=== PATIENT | male | born 1945 | race Caucasian/White ===

== ENCOUNTER 2024-05-28 10:10 | Emergency (ER) | payer OTHER, BC ==
[2024-05-28] MEDS ORDERED: cloNIDine HCL 0.1 MG TAB ONE (11:08)
--- NOTE | 2024-05-28 11:27 | ER ---
Nurse's Notes [facility] Name: Ochoa Bansal Age: 78 yrs Sex: Male : 1945 Arrival Date: 05/28/2024 Time: 10:10 Bed 12 Private MD: Diagnosis: Essential (primary) hypertension Presentation: 05/28 10:36 Chief complaint: Sent from cancer center for high blood pressure. Coronavirus screen: hb At this time, the client does not indicate any symptoms associated with coronavirus-19. Ebola Screen: No symptoms or risks identified at this time. Initial Sepsis Screen: Does the patient meet any 2 criteria? No. Patient's initial sepsis screen is negative. Does the patient have a suspected source of infection? No. Patient's initial sepsis screen is negative. Risk Assessment: Do you want to hurt yourself or someone else? Patient reports no desire to harm self or others. Onset of symptoms was May 28, 2024. 10:36 Method Of Arrival: Ambulatory hb 10:36 Acuity: JORGE 3 hb Historical: - Allergies: 10:37 No Known Allergies; hb - PMHx: 10:37 Prostate Cancer; Hypertension; hb - Immunization history:: Adult Immunizations up to date. - Infectious Disease History:: Denies. - Social history:: Smoking status: Patient denies any tobacco usage or history of. Screenin:19 [facility] ED Fall Risk Assessment (Adult) History of falling in the last 3 months, ll1 including since admission No falls in past 3 months (0 pts) Confusion or Disorientation No (0 pts) Intoxicated or Sedated No (0 pts) Impaired Gait No (0 pts) Mobility Assist Device Used Yes (1 pt) Altered Elimination No (0 pt) Score/Fall Risk Level 0 - 2 = Low Risk Maintained a safe environment, Hourly rounding (assess needs \T\ fall precautionary measures) done. Abuse screen: Denies threats or abuse. Nutritional screening: No deficits noted. Tuberculosis screening: No symptoms or risk factors identified. Assessment: 11:14 Reassessment: No changes from previously documented assessment. Patient and/or family ll1 updated on plan of care and expected duration. Pain level reassessed. 11:19 General: Appears in no apparent distress. Behavior is calm, cooperative, appropriate ll1 for age, Reports elevated BP. Pain: Denies pain. Cardiovascular: Reports elevated BP. Vital Signs: 10:36 BP 186 / 96; Pulse 58; Resp 16; Temp 97.8(TE); Pulse Ox 100% on R/A; Weight 86.64 kg; hb Height 6 ft. 0 in. ; Pain 0/10; 11:15 BP 183 / 83; Pulse 57; Pulse Ox 100% on R/A; ll1 12:34 BP 154 / 80; Pulse 45; Resp 17; Temp 98; Pulse Ox 96% on R/A; ap3 10:36 Body Mass Index 25.90 (86.64 kg, 182.88 cm) hb 10:36 Pain Scale: Adult hb ED Course: 10:14 Patient arrived in ED. ra3 10:21 Roger Koehler DO is Attending Physician. ms3 10:37 Triage completed. hb 10:39 Arm band placed on. hb 11:08 Patient placed in an exam room, on a stretcher. ll1 11:15 Provided Education on: ER procedure and process. ll1 11:20 Patient has correct armband on for positive identification. Bed in low position. Client ll1 placed on continuous cardiac and pulse oximetry monitoring. NIBP monitoring applied. 11:27 Jamie Mccray MD is Referral Physician. ms3 12:33 Mikaela Olivares, KARYNA is Primary Nurse. ap3 12:33 No provider procedures requiring assistance completed. Patient did not have IV access ap3 during this emergency room visit. Administered Medications: 11:14 Drug: cloNIDine PO 0.1 mg PO once Route: PO; ll1 12:34 Follow up: Response: No adverse reaction; Blood pressure is lowered ap3 Medication: 11:20 VIS not applicable for this client. ll1 Outcome: 11:27 Discharge ordered by . ms3 12:33 Discharged to home ambulatory, with family, ap3 12:33 Condition: good 12:33 Discharge instructions given to patient, Instructed on discharge instructions, follow up and referral plans. Demonstrated understanding of instructions, follow-up care, 12:34 Patient left the ED. ap3 Signatures: Augustina Ochoa RN RN Mikaela Olivares RN RN ap3 Carli Aldridge RN RN ll1 Roger Koehler DO DO ms3 Frannie Edwards ra3 Corrections: (The following items were deleted from the chart) 11:19 11:14 Reassessment: No changes from previously documented assessment. Patient and/or ll1 family updated on plan of care and expected duration. Pain level reassessed. ll1
--- NOTE | 2024-05-28 11:27 | EDPHYS ---
Physician Documentation [facility] Name: Ochoa Bansal Age: 78 yrs Sex: Male : 1945 Arrival Date: 05/28/2024 Time: 10:10 Bed 12 Private MD: ED Physician Roger Koehler HPI: 05/28 10:43 This 78 yrs old Male presents to ER via Ambulatory with complaints of High Blood ms3 Pressure. 10:43 78-year-old male with past medical history of prostate cancer, hypertension presents to [facility] the emergency department for elevated blood pressure that was noted at the cancer center when he was going to receive an iron infusion today. Patient denies chest pain, shortness of breath, nausea, vomiting, headache. Historical: - Allergies: 10:37 No Known Allergies; hb - PMHx: 10:37 Prostate Cancer; Hypertension; hb - Immunization history:: Adult Immunizations up to date. - Infectious Disease History:: Denies. - Social history:: Smoking status: Patient denies any tobacco usage or history of. ROS: 10:43 Constitutional: Negative for fever, and chills. Cardiovascular: Negative for chest ms3 pain, and palpitations. Respiratory: Negative for shortness of breath, cough, wheezing, and pleuritic chest pain, Abdomen/GI: Negative for abdominal pain, nausea, vomiting, diarrhea, and constipation, MS/Extremity: Negative for injury and deformity, Skin: Negative for injury, rash, and discoloration, Exam: 10:43 Constitutional: This is a well developed, well nourished patient who is awake, alert, ms3 and in no acute distress. Chest/axilla: Normal chest wall appearance and motion. Nontender with no deformity. Respiratory: Lungs have equal breath sounds bilaterally, clear to auscultation and percussion. No rales, rhonchi or wheezes noted. No increased work of breathing, no retractions or nasal flaring. Abdomen/GI: Soft, non-tender, with normal bowel sounds. No distension or tympany. No guarding or rebound. No evidence of tenderness throughout. Skin: Warm, dry with normal turgor. Normal color with no rashes, no lesions, and no evidence of cellulitis. MS/ Extremity: Pulses equal, no cyanosis. Neurovascular intact. Full, normal range of motion. 11:29 Cardiovascular: Rate: normal, Rhythm: regular, Pulses: no pulse deficits are ms3 appreciated, Heart sounds: murmur, systolic, Vital Signs: 10:36 BP 186 / 96; Pulse 58; Resp 16; Temp 97.8(TE); Pulse Ox 100% on R/A; Weight 86.64 kg; hb Height 6 ft. 0 in. ; Pain 0/10; 11:15 BP 183 / 83; Pulse 57; Pulse Ox 100% on R/A; ll1 12:34 BP 154 / 80; Pulse 45; Resp 17; Temp 98; Pulse Ox 96% on R/A; ap3 10:36 Body Mass Index 25.90 (86.64 kg, 182.88 cm) hb 10:36 Pain Scale: Adult hb MDM: 10:34 Medical Screening Exam initiated ms3 10:43 Differential diagnosis: hypertensive crisis, Malignant HTN, Hypertension. ms3 11:29 Data reviewed: vital signs, nurses notes, and as a result, I will discharge patient. I ms3 considered the following discharge prescriptions or medication management in the emergency department Medications were administered in the Emergency Department. See MAR. Historians other than the Patient: Daughter/Son: Patient's daughter. Counseling: I had a detailed discussion with the patient and/or guardian regarding the historical points, exam findings, and any diagnostic results supporting the discharge/admit diagnosis, the need for outpatient follow up, to return to the emergency department if symptoms worsen or persist or if there are any questions or concerns that arise at home. ED course: Discussed physical exam findings with patient and his daughter. They understand agree with plan. All questions were answered. Return precautions discussed include worsening symptoms, or any other concerns. Patient to follow-up with Dr. Park in 2 to 3 days. Administered Medications: 11:14 Drug: cloNIDine PO 0.1 mg PO once Route: PO; ll1 12:34 Follow up: Response: No adverse reaction; Blood pressure is lowered ap3 Disposition Summary: 05/28/24 11:27 Discharge Ordered Notes: Location: Home ms3 Condition: Stable ms3 Diagnosis - Essential (primary) hypertension ms3 Followup: ms3 - With: Jamie Mccray MD - When: 2 - 3 days - Reason: Recheck today's complaints Discharge Instructions: - Discharge Summary Sheet ms3 - Hypertension, Adult ms3 Forms: - Medication Reconciliation Form ms3 - Antibiotic Education ms3 - Prescription Opioid Use ms3 - Patient Portal Instructions ms3 - Leadership Thank You Letter ms3 Signatures: Augustina Ochoa RN RN Carli Aldridge RN RN ll1 Roger Koehler DO DO ms3 Mikaela Olivares RN ap3 Corrections: (The following items were deleted from the chart) 11:29 10:43 Constitutional: This is a well developed, well nourished patient who is awake, ms3 alert, and in no acute distress. Chest/axilla: Normal chest wall appearance and motion. Nontender with no deformity. Cardiovascular: Regular rate and rhythm with a normal S1 and S2. No gallops, murmurs, or rubs. Normal PMI, no JVD. No pulse deficits. Respiratory: Lungs have equal breath sounds bilaterally, clear to auscultation and percussion. No rales, rhonchi or wheezes noted. No increased work of breathing, no retractions or nasal flaring. Abdomen/GI: Soft, non-tender, with normal bowel sounds. No distension or tympany. No guarding or rebound. No evidence of tenderness throughout. Skin: Warm, dry with normal turgor. Normal color with no rashes, no lesions, and no evidence of cellulitis. MS/ Extremity: Pulses equal, no cyanosis. Neurovascular intact. Full, normal range of motion. ms3
[2024-05-28 14:05] VITALS: TEMP 97.8; O2SAT 100
[2024-05-28 14:07] VITALS: BP 183/83
== END 2024-05-28 12:34 | disposition home or self-care (01) ==
LOC: ER 10:10
DX: I10 Essential (primary) hypertension (principal); C61 Malignant neoplasm of prostate

== ENCOUNTER 2024-10-07 07:13 | Emergency (ER) | payer OTHER, BC ==
--- OUTSIDE RECORDS SUMMARY | 2024-10-07 07:17 | XMS REPORT | Continuity of Care Document ---
Author Name Unknown Address [address] [facility] [address] [place] [address] [facility] Address [address] [facility] [address] [place] [address] Care Team Providers Care Aluminum Pourer Name Role Phone Ulysses Duarte Attending Clinician Unavailable Problems Condition Name Condition Details Condition Category Status Onset Date Resolution Date Last Treatment Date Treating Clinician Comments Source [id number] Osteoporos is, unspecifie d osteoporos is type, unspecifie d pathologic al fracture presence Problem [facility] [id number] UTI (urinary tract infection) with pyuria Problem [facility] [id number] Primary malignant neoplasm of prostate with high risk of recurrence due to [place] score of 8 to 10 and PSA greater than 20 Problem [facility] [id number] Membranous urethral stricture Problem [facility] [id number] 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 Problem [facility] [id number] S/P radiation therapy Problem [facility] [id number] Androgen deprivatio n therapy Problem [facility] Anemia Anemia, unspecifie d type Problem [facility] [id number] BPH loc w urin obs/LUTS Problem [facility] Malignant tumor of prostate Malignant neoplasm of prostate Problem [facility] [id number] Essential (primary) hypertensi on Problem [facility] [id number] GERD without esophagiti s Problem [facility] [id number] Mixed hyperlipid emia Problem [facility] [id number] Pelvic mass Problem [facility] [id number] Obstructiv e uropathy Problem [facility] [id number] PVD (periphera l vascular disease) Problem [facility] [id number] Lower urinary tract symptoms (LUTS) Problem [facility] [id number] History of UTI Problem [facility] [id number] Cardiomyop athy, unspecifie d type Problem [facility] Social History Social Habit Start Date Stop Date Quantity Comments Source History of Tobacco Use [facility] Sex Assigned At [facility] Smoking Status Start Date Stop Date Source Never Smoker [facility] Medications Ordered Medication Name Filled Medication Name Start Date Stop Date Current Medication? Ordering Clinician Indication Dosage Frequency Signature (SIG) Comments Components Source Zehrasiri Browning 2023-0 08-18 00:00: 00 No 22.5mg [facility] Tamsulosin HCl 0.4 MG Tamsulosin HCl 0.4 MG No 1{capsu le} QD Tamsulosin HCl 0.4 MG Aspirin Adult Low Dose Aspirin Adult Low Dose No 1{table t} QD Vitamin K2-Vitamin D3 Simvastatin 40 MG Simvastatin 40 MG No 1{table t_in_th e_eveni ng} QD Simvastati n 40 MG Omeprazole 20 MG Omeprazole 20 MG No QD Omeprazole 20 MG Abiraterone Acetate 500 MG Abiraterone Acetate 500 MG No 2{table ts} QD Abirateron e Acetate 500 MG Spironolact one 25 MG Spironolact one 25 MG No 1{table t} QD Spironolac tone 25 MG Calcium 600 MG Calcium 600 MG No 1{table t_with_ meals} Calcium 600 MG Atenolol 100 MG Atenolol 100 MG No 1{table t} QD Atenolol 100 MG Furosemide 20 MG Furosemide 20 MG No Vitamin D3 25 MCG (1000 UT) Vitamin D3 25 MCG (1000 UT) No 1{capsu le} QD Lisinopril 20 MG Lisinopril 20 MG No 1{table t} QD Immunizations Ordered Immunization Name Filled Immunization Name Date Status Comments Source Shingrix Shingrix Unknown Completed [facility] Pneumovax (PPSV23) Pneumovax (PPSV23) Unknown Completed [facility] Shingrix Shingrix Unknown Completed [facility] Pneumovax (PPSV23) Pneumovax (PPSV23) Unknown Completed [facility] Shingrix Shingrix Unknown Completed [facility] Pneumovax (PPSV23) Pneumovax (PPSV23) Unknown Completed [facility] Shingrix Shingrix Unknown Completed [facility] Pneumovax (PPSV23) Pneumovax (PPSV23) Unknown Completed [facility] Shingrix Shingrix Unknown Completed [facility] Pneumovax (PPSV23) Pneumovax (PPSV23) Unknown Completed [facility] Shingrix Shingrix Unknown Completed [facility] Pneumovax (PPSV23) Pneumovax (PPSV23) Unknown Completed [facility] Shingrix Shingrix Unknown Completed [facility] Pneumovax (PPSV23) Pneumovax (PPSV23) Unknown Completed [facility] Shingrix Shingrix Unknown Completed [facility] Pneumovax (PPSV23) Pneumovax (PPSV23) Unknown Completed [facility] Shingrix Shingrix Unknown Completed [facility] Pneumovax (PPSV23) Pneumovax (PPSV23) Unknown Completed [facility] Shingrix Shingrix Unknown Completed [facility] Pneumovax (PPSV23) Pneumovax (PPSV23) Unknown Completed [facility] Shingrix Shingrix Unknown Completed [facility] Pneumovax (PPSV23) Pneumovax (PPSV23) Unknown Completed [facility] Shingrix Shingrix Unknown Completed [facility] Pneumovax (PPSV23) Pneumovax (PPSV23) Unknown Completed [facility] Shingrix Shingrix Unknown Completed [facility] Pneumovax (PPSV23) Pneumovax (PPSV23) Unknown Completed [facility] Shingrix Shingrix Unknown Completed [facility] Pneumovax (PPSV23) Pneumovax (PPSV23) Unknown Completed [facility] Shingrix Shingrix Unknown Completed [facility] Pneumovax (PPSV23) Pneumovax (PPSV23) Unknown Completed [facility] Shingrix Shingrix Unknown Completed [facility] Pneumovax (PPSV23) Pneumovax (PPSV23) Unknown Completed [facility] Shingrix Shingrix Unknown Completed [facility] Pneumovax (PPSV23) Pneumovax (PPSV23) Unknown Completed [facility] Vital Signs Vital Name Observation Time Observation Value Comments S ource height 2024-08-14 15:30:00 71 [in_i] [facility] weight 2024-08-14 15:30:00 196.4 [lb_av] [facility] temperature 2024-08-14 15:30:00 97.4 [degF] [facility] bmi 2024-08-14 15:30:00 27.39 kg/m2 [facility] oximetry 2024-08-14 15:30:00 95 % [facility] respiratory rate 2024-08-14 15:30:00 16 /min [facility] blood pressure systolic 2024-08-14 15:30:00 132 mm[Hg] [facility] blood pressure diastolic 2024-08-14 15:30:00 70 mm[Hg] [facility] height 2024-06-20 10:00:00 71 [in_i] [facility] weight 2024-06-20 10:00:00 185 [lb_av] [facility] temperature 2024-06-20 10:00:00 98.0 [degF] [facility] bmi 2024-06-20 10:00:00 25.8 kg/m2 [facility] oximetry 2024-06-20 10:00:00 98 % [facility] respiratory rate 2024-06-20 10:00:00 18 /min [facility] blood pressure systolic 2024-06-20 10:00:00 139 mm[Hg] [facility] blood pressure diastolic 2024-06-20 10:00:00 72 mm[Hg] [facility] height 2024-03-06 15:00:00 71 [in_i] [facility] weight 2024-03-06 15:00:00 202.6 [lb_av] [facility] temperature 2024-03-06 15:00:00 97.2 [degF] [facility] bmi 2024-03-06 15:00:00 28.25 kg/m2 [facility] oximetry 2024-03-06 15:00:00 98 % [facility] blood pressure systolic 2024-03-06 15:00:00 138 mm[Hg] [facility] blood pressure diastolic 2024-03-06 15:00:00 80 mm[Hg] [facility] height 2024-03-06 14:50:00 71 [in_i] [facility] weight 2024-03-06 14:50:00 202.6 [lb_av] [facility] temperature 2024-03-06 14:50:00 97.2 [degF] Com [facility] bmi 2024-03-06 14:50:00 28.25 kg/m2 [facility] oximetry 2024-03-06 14:50:00 98 % [facility] blood pressure systolic 2024-03-06 14:50:00 138 mm[Hg] [facility] blood pressure diastolic 2024-03-06 14:50:00 80 mm[Hg] [facility] height 2024-03-06 14:50:00 71 [in_i] [facility] weight 2024-03-06 14:50:00 202.6 [lb_av] [facility] temperature 2024-03-06 14:50:00 97.2 [degF] Com [facility] bmi 2024-03-06 14:50:00 28.25 kg/m2 [facility] oximetry 2024-03-06 14:50:00 98 % [facility] blood pressure systolic 2024-03-06 14:50:00 138 mm[Hg] [facility] blood pressure diastolic 2024-03-06 14:50:00 80 mm[Hg] [facility] height 2023-12-20 10:30:00 71 [in_i] [facility] weight 2023-12-20 10:30:00 207.6 [lb_av] [facility] 2023-12-20 10:30:00 98.0 [degF] Com [facility] bmi 2023-12-20 10:30:00 28.95 kg/m2 [facility] oximetry 2023-12-20 10:30:00 97 % [facility] respiratory rate 2023-12-20 10:30:00 18 /min [facility] blood pressure systolic 2023-12-20 10:30:00 168 mm[Hg] [facility] blood pressure diastolic 2023-12-20 10:30:00 75 mm[Hg] [facility] height 2023-08-15 10:20:00 71 [in_i] [facility] weight 2023-08-15 10:20:00 216.8 [lb_av] [facility] temperature 2023-08-15 10:20:00 97.2 [degF] Com [facility] bmi 2023-08-15 10:20:00 30.23 kg/m2 [facility] oximetry 2023-08-15 10:20:00 98 % [facility] blood pressure systolic 2023-08-15 10:20:00 136 mm[Hg] [facility] blood pressure diastolic 2023-08-15 10:20:00 82 mm[Hg] [facility] height 2023-08-15 10:20:00 71 [in_i] [facility] weight 2023-08-15 10:20:00 216.8 [lb_av] [facility] temperature 2023-08-15 10:20:00 97.2 [degF] Com [facility] bmi 2023-08-15 10:20:00 30.23 kg/m2 [facility] oximetry 2023-08-15 10:20:00 98 % [facility] blood pressure systolic 2023-08-15 10:20:00 136 mm[Hg] [facility] blood pressure diastolic 2023-08-15 10:20:00 82 mm[Hg] [facility] height 2023-04-11 10:20:00 71 [in_i] [facility] weight 2023-04-11 10:20:00 218.0 [lb_av] [facility] temperature 2023-04-11 10:20:00 97.7 [degF] [facility] bmi 2023-04-11 10:20:00 30.4 kg/m2 [facility] oximetry 2023-04-11 10:20:00 99 % [facility] respiratory rate 2023-04-11 10:20:00 18 /min [facility] blood pressure systolic 2023-04-11 10:20:00 129 mm[Hg] [facility] blood pressure diastolic 2023-04-11 10:20:00 73 mm[Hg] [facility] height 2023-03-21 15:45:00 71 [in_i] [facility] weight 2023-03-21 15:45:00 220 [lb_av] [facility] temperature 2023-03-21 15:45:00 97.6 [degF] [facility] bmi 2023-03-21 15:45:00 30.68 kg/m2 [facility] oximetry 2023-03-21 15:45:00 99 % [facility] respiratory rate 2023-03-21 15:45:00 18 /min [facility] blood pressure systolic 2023-03-21 15:45:00 132 mm[Hg] [facility] blood pressure diastolic 2023-03-21 15:45:00 68 mm[Hg] [facility] height 2023-01-09 09:00:00 71 [in_i] [facility] weight 2023-01-09 09:00:00 215.8 [lb_av] [facility] temperature 2023-01-09 09:00:00 97.7 [degF] [facility] bmi 2023-01-09 09:00:00 30.09 kg/m2 [facility] oximetry 2023-01-09 09:00:00 97 % [facility] respiratory rate 2023-01-09 09:00:00 18 /min [facility] blood pressure systolic 2023-01-09 09:00:00 133 mm[Hg] [facility] blood pressure diastolic 2023-01-09 09:00:00 67 mm[Hg] [facility] height 2023-01-09 08:50:00 71 [in_i] [facility] weight 2023-01-09 08:50:00 215.8 [lb_av] [facility] temperature 2023-01-09 08:50:00 97.7 [degF] Com [facility] bmi 2023-01-09 08:50:00 30.09 kg/m2 [facility] oximetry 2023-01-09 08:50:00 97 % [facility] respiratory rate 2023-01-09 08:50:00 18 /min [facility] blood pressure systolic 2023-01-09 08:50:00 133 mm[Hg] [facility] blood pressure diastolic 2023-01-09 08:50:00 67 mm[Hg] [facility] height 2022-11-17 17:45:00 71 [in_i] [facility] weight 2022-11-17 17:45:00 216 [lb_av] [facility] temperature 2022-11-17 17:45:00 97.9 [degF] Com [facility] bmi 2022-11-17 17:45:00 30.12 kg/m2 [facility] oximetry 2022-11-17 17:45:00 99 % [facility] respiratory rate 2022-11-17 17:45:00 18 /min [facility] blood pressure systolic 2022-11-17 17:45:00 130 mm[Hg] [facility] blood pressure diastolic 2022-11-17 17:45:00 85 mm[Hg] [facility] height 2022-09-29 09:00:00 71 [in_i] [facility] weight 2022-09-29 09:00:00 212.3 [lb_av] [facility] temperature 2022-09-29 09:00:00 97.3 [degF] [facility] bmi 2022-09-29 09:00:00 29.61 kg/m2 [facility] oximetry 2022-09-29 09:00:00 97 % [facility] respiratory rate 2022-09-29 09:00:00 17 /min [facility] blood pressure systolic 2022-09-29 09:00:00 129 mm[Hg] [facility] blood pressure diastolic 2022-09-29 09:00:00 71 mm[Hg] [facility] height 2022-09-23 11:15:00 72 [in_i] [facility] weight 2022-09-23 11:15:00 213 [lb_av] [facility] temperature 2022-09-23 11:15:00 97.9 [degF] Com [facility] bmi 2022-09-23 11:15:00 28.88 kg/m2 [facility] oximetry 2022-09-23 11:15:00 99 % [facility] respiratory rate 2022-09-23 11:15:00 18 /min [facility] blood pressure systolic 2022-09-23 11:15:00 190 mm[Hg] [facility] blood pressure diastolic 2022-09-23 11:15:00 93 mm[Hg] [facility] height 2022-08-18 17:00:00 72 [in_i] [facility] weight 2022-08-18 17:00:00 213.8 [lb_av] [facility] temperature 2022-08-18 17:00:00 97.9 [degF] [facility] bmi 2022-08-18 17:00:00 28.99 kg/m2 [facility] oximetry 2022-08-18 17:00:00 99 % [facility] respiratory rate 2022-08-18 17:00:00 18 /min [facility] blood pressure systolic 2022-08-18 17:00:00 132 mm[Hg] [facility] blood pressure diastolic 2022-08-18 17:00:00 68 mm[Hg] [facility] height 2022-08-18 17:00:00 72 [in_i] [facility] weight 2022-08-18 17:00:00 213.8 [lb_av] [facility] temperature 2022-08-18 17:00:00 97.9 [degF] [facility] bmi 2022-08-18 17:00:00 28.99 kg/m2 [facility] oximetry 2022-08-18 17:00:00 99 % [facility] respiratory rate 2022-08-18 17:00:00 18 /min [facility] blood pressure systolic 2022-08-18 17:00:00 132 mm[Hg] [facility] blood pressure diastolic 2022-08-18 17:00:00 68 mm[Hg] [facility] height 2022-07-21 08:30:00 72 [in_i] [facility] weight 2022-07-21 08:30:00 213 [lb_av] [facility] temperature 2022-07-21 08:30:00 98.0 [degF] Com [facility] bmi 2022-07-21 08:30:00 28.88 kg/m2 [facility] oximetry 2022-07-21 08:30:00 99 % [facility] respiratory rate 2022-07-21 08:30:00 18 /min [facility] blood pressure systolic 2022-07-21 08:30:00 175 mm[Hg] [facility] blood pressure diastolic 2022-07-21 08:30:00 86 mm[Hg] [facility] height 2022-07-21 08:30:00 72 [in_i] [facility] weight 2022-07-21 08:30:00 213 [lb_av] [facility] temperature 2022-07-21 08:30:00 98.0 [degF] Com [facility] bmi 2022-07-21 08:30:00 28.88 kg/m2 [facility] oximetry 2022-07-21 08:30:00 99 % [facility] respiratory rate 2022-07-21 08:30:00 18 /min [facility] blood pressure systolic 2022-07-21 08:30:00 175 mm[Hg] [facility] blood pressure diastolic 2022-07-21 08:30:00 86 mm[Hg] [facility] Procedures Procedure Date / Time Performed Performing Clinicia n Source PVR 2023-12-20 00:00:00 [facility] PVR 2023-06-21 00:00:00 [facility] PVR 2023-03-21 00:00:00 [facility] PVR 2022-11-17 00:00:00 [facility] Encounters Start Date/Time End Date/Time Encounter Type Admission Type Attending Clinicians Care Facility Care Department Encounter ID Source 2024-08-12 16:25:00 Outpatient Duarte, Ulysses [facility] [id number] [facility] 2023-12-27 10:27:01 Outpatient Duarte, Ulysses [facility] [id number] [facility] 2023-01-09 09:41:02 Outpatient Duarte, Ulysses [facility] [id number] [facility] 2023-01-06 11:36:00 Outpatient Duarte, Ulysses [facility] [id number] [facility] 2022-09-29 08:55:01 Outpatient Duarte, Ulysses [facility] [id number] [facility] 2022-07-21 07:49:00 Outpatient Duarte, Ulysses [facility] [id number] [facility] 2024-08-26 00:00:00 2024-08-26 00:00:00 (TEL) [facility] [id number] [facility] 2024-08-14 00:00:00 2024-08-14 00:00:00 OFFICE VISIT ESTAB PT LEVEL 4 [facility] [id number] [facility] 2024-06-20 00:00:00 2024-06-20 00:00:00 OFFICE VISIT ESTAB PT LEVEL 3 [facility] [id number] [facility] 2024-03-06 00:00:00 2024-03-06 00:00:00 SUB ANNUAL MCR WELLNESS VISIT [facility] [id number] [facility] 2024-03-06 00:00:00 2024-03-06 00:00:00 OFFICE VISIT ESTAB PT LEVEL 4 [facility] [id number] [facility] 2024-03-06 00:00:00 2024-03-06 00:00:00 (TEL) [facility] [id number] [facility] 2024-02-19 00:00:00 2024-02-19 00:00:00 (TEL) [facility] [id number] [facility] 2023-12-27 00:00:00 2023-12-27 00:00:00 (TEL) [facility] [id number] [facility] 2023-12-20 00:00:00 2023-12-20 00:00:00 OFFICE VISIT ESTAB PT LEVEL 3 [facility] [id number] [facility] 2023-11-06 00:00:00 2023-11-06 00:00:00 (TEL) [facility] [id number] [facility] 2023-09-06 00:00:00 2023-09-06 00:00:00 ([place]) Nurse Visit [facility] [id number] [facility] 2023-08-28 00:00:00 2023-08-28 00:00:00 (TEL) [facility] [id number] [facility] 2023-08-15 00:00:00 2023-08-15 00:00:00 OFFICE VISIT ESTAB PT LEVEL 4 [facility] [id number] [facility] 2023-06-21 00:00:00 2023-06-21 00:00:00 OFFICE VISIT ESTAB PT LEVEL 3 [facility] [id number] [facility] 2023-04-11 00:00:2023-04-11 00:00:00 OFFICE VISIT ESTAB PT LEVEL 4 [facility] [id number] [facility] 2023-03-21 00:00:00 2023-03-21 00:00:00 OFFICE VISIT ESTAB PT LEVEL 3 [facility] [id number] [facility] 2023-03-15 00:00:00 2023-03-15 00:00:00 ([place]) Nurse Visit [facility] [id number] [facility] 2023-01-09 00:00:00 2023-01-09 00:00:00 SUB ANNUAL [facility] WELLNESS VISIT [facility] [id number] [facility] 2023-01-09 00:00:00 2023-01-09 00:00:00 OFFICE VISIT ESTAB PT LEVEL 4 [facility] [id number] [facility] 2022-11-17 00:00:00 2022-11-17 00:00:00 OFFICE VISIT ESTAB PT LEVEL 5 [facility] [id number] [facility] 2022-09-29 00:00:00 2022-09-29 00:00:00 OFFICE VISIT NEW PT LEVEL 3 [facility] [id number] [facility] 2022-09-23 00:00:00 2022-09-23 00:00:00 OFFICE VISIT ESTAB PT LEVEL 4 [facility] [id number] [facility] 2022-08-30 00:00:00 2022-08-30 00:00:00 (TEL) [facility] [id number] [facility] 2022-08-18 00:00:00 2022-08-18 00:00:00 OFFICE VISIT ESTAB PT LEVEL 5 [facility] [id number] [facility] 2022-08-18 00:00:00 2022-08-18 00:00:00 (TEL) [facility] [id number] [facility] 2022-07-22 00:00:00 2022-07-22 00:00:00 (TEL) [facility] [id number] [facility] 2022-07-21 00:00:00 2022-07-21 00:00:00 OFFICE VISIT NEW PT LEVEL [address] [facility] [facility] [id number] [facility] Results Test Description Test Time Test Comments Results Result Co mments Source HEMOGLOBIN [id number] 00:00:00* Test Item Value Reference Range Interpretation Comme nts HEMOGLOBIN A1c (test code = 4548-4) 5.8 % See_Comment H [Automated messa ge] The system which generated this result transmitted reference range: 4.2-5.6 %. The reference range was not used to interpret this result as normal/abnormal. [id number] 00:00:00* Test Item Value Reference Range Interpretation Comme nts FERRITIN (test code = 19287-6) 299 NG/ML See_Comment [Automated messa ge] The system which generated this result transmitted reference range: 30-400 NG/ML. The reference range was not used to interpret this result as normal/abnormal. CBC W/AUTO [id number] 00:00:00* Test Item Value Reference Range Interpretation Comme nts NUCLEATED RBCS (test code = 17105-9) 0.0 /100 WBC'S See_Comment [Automated messa ge] The system which generated this result transmitted reference range: 0.0 /100 WBC'S. The reference range was not used to interpret this result as normal/abnormal. ABSOLUTE EOSINOPHILS (test code = 51249-2) 0.10 K/UL See_Comment [Automated messa ge] The system which generated this result transmitted reference range: 0.00-0.50 K/UL. The reference range was not used to interpret this result as normal/abnormal. ABSOLUTE LYMPHOCYTES (test code = 55141-9) 3.17 K/UL See_Comment [Automated messa ge] The system which generated this result transmitted reference range: 1.00-4.00 K/UL. The reference range was not used to interpret this result as normal/abnormal. ABSOLUTE MONOCYTES (test code = 90420-2) 0.66 K/UL See_Comment [Automated messa ge] The system which generated this result transmitted reference range: 0.20-1.00 K/UL. The reference range was not used to interpret this result as normal/abnormal. ABSOLUTE NEUTROPHILS (test code = 00394-7) 4.23 K/UL See_Comment [Automated messa ge] The system which generated this result transmitted reference range: 1.50-7.50 K/UL. The reference range was not used to interpret this result as normal/abnormal. BASOPHILS (test code = 35881-4) 0.6 % EOSINOPHILS (test code = 46478-2) 1.2 % HEMATOCRIT (test code = 72218-2) 33.7 % See_Comment L [Automated messa ge] The system which generated this result transmitted reference range: 40.0-51.0 %. The reference range was not used to interpret this result as normal/abnormal. HEMOGLOBIN (test code = 718-7) 11.3 G/DL See_Comment L [Automated messa ge] The system which generated this result transmitted reference range: 13.5-17.0 G/DL. The reference range was not used to interpret this result as normal/abnormal. LYMPHOCYTES (test code = 74267-8) 38.5 % MCH (test code = 89589-0) 31.0 PG See_Comment [Automated messa ge] The system which generated this result transmitted reference range: 25.0-33.0 PG. The reference range was not used to interpret this result as normal/abnormal. MCHC (test code = 37306-1) 33.5 G/DL See_Comment [Automated messa ge] The system which generated this result transmitted reference range: 31.0-36.0 G/DL. The reference range was not used to interpret this result as normal/abnormal. MCV (test code = 65296-1) 92.6 fL See_Comment [Automated messa ge] The system which generated this result transmitted reference range: 80.0-99.0 fL. The reference range was not used to interpret this result as normal/abnormal. MONOCYTES (test code = 40207-7) 8.0 % NEUTROPHILS (test code = 02792-5) 51.3 % PLATELET COUNT (test code = 01015-9) 251 K/UL See_Comment [Automated messa ge] The system which generated this result transmitted reference range: 130-400 K/UL. The reference range was not used to interpret this result as normal/abnormal. RBC (test code = 99821-8) 3.64 M/UL See_Comment L [Automated [employer]] The system which generated this result transmitted reference range: 4.50-6.10 M/UL. The reference range was not used to interpret this result as normal/abnormal. RDW (test code = 12985-2) 12.8 % See_Comment [Automated [employer]] The system which generated this result transmitted reference range: 11.5-15.0 %. The reference range was not used to interpret this result as normal/abnormal. WBC (test code = 20531-0) 8.2 K/UL See_Comment [Automated [employer]] The system which generated this result transmitted reference range: 3.5-11.0 K/UL. The reference range was not used to interpret this result as normal/abnormal.
[2024-10-07 08:09] LABS: Specific Gravity 1.018 (1.005-1.030); Sqamous Epithelial None Seen /HPF (None Seen); Urine Bacteria None Seen /HPF (<20); Urine Bilirubin NEGATIVE (Negative); Urine Blood 3+ (Negative); Urine Clarity Extremely Turbid (Clear); Urine Color Light-Orange (Yellow); Urine Crystals Unidentified Few /HPF (None Seen); Urine Culture Reflex Order REFLEXED; Urine Glucose NEGATIVE (Negative); Urine Ketones NEGATIVE (Negative); Urine Microscopic Reflex YN ORDER UMIC; Urine Mucus Slight /HPF (None Seen); Urine Nitrite 2+ (Negative); Urine Protein 3+ (Negative); Urine RBC >50 /HPF (None Seen); Urine Urobilinogen Normal (Normal); Urine WBC >50 /HPF (<5); Urine WBC Clump Few /HPF (None Seen); Urine pH 6.5 (5.0-7.0)
--- NOTE | 2024-10-07 09:23 | EDPHYS ---
Physician Documentation [facility] Name: Ochoa Bansal Age: 79 yrs Sex: Male : 1945 Arrival Date: 10/07/2024 Time: 07:13 Bed 7 Private MD: ED Physician Roger Koehler HPI: 10/07 10:09 This 79 yrs old Male presents to ER via Ambulatory with complaints of Urinary Problem. [facility] [place] 10:09 79-year-old male with past medical history of hypertension, prostate cancer [place] [facility] [place] for urinary frequency, dysuria. Patient states his discomfort is an 8/10. Patient denies hematuria, urgency, fevers, chills, nausea, vomiting.. Historical: - Allergies: 07:35 No Known Allergies; ld1 - PMHx: 07:22 Hypertension; Prostate Cancer; ld1 - Immunization history:: Adult Immunizations up to date. - Infectious Disease History:: Denies. - Social history:: Smoking status: Patient denies any tobacco usage or history of. ROS: 10:09 Constitutional: Negative for fever, and chills. Cardiovascular: Negative for chest ms3 pain, and palpitations. Respiratory: Negative for shortness of breath, cough, wheezing, and pleuritic chest pain, Abdomen/GI: Negative for abdominal pain, nausea, vomiting, diarrhea, and constipation, 10:09 Neuro: Negative for headache, weakness, numbness, tingling. 10:09 : Positive for urinary frequency, small amounts, burning with urination, Negative for hematuria, Exam: 10:09 Constitutional: This is a well developed, well nourished patient who is awake, alert, ms3 and in no acute distress. Cardiovascular: Regular rate and rhythm with a normal S1 and S2. No gallops, murmurs, or rubs. Normal PMI, no JVD. No pulse deficits. Respiratory: Lungs have equal breath sounds bilaterally, clear to auscultation and percussion. No rales, rhonchi or wheezes noted. No increased work of breathing, no retractions or nasal flaring. 10:09 Abdomen/GI: Inspection: abdomen appears normal, Bowel sounds: normal, Palpation: mild abdominal tenderness, in the suprapubic area, Vital Signs: 07:32 BP 163 / 89; Pulse 64; Resp 18; Temp 97.8(O); Pulse Ox 99% on R/A; Weight 90.26 kg; ld1 Height 6 ft. 0 in. ; Pain 0/10; 07:32 Body Mass Index 26.99 (90.26 kg, 182.88 cm) ld1 07:32 Pain Scale: Adult ld1 MDM: 07:52 Medical Screening Exam initiated ms3 10:09 Differential diagnosis: UTI, prostatitis, urethritis. Data reviewed: vital signs, ms3 nurses notes, lab test result(s), and as a result, I will discharge patient. I considered the following discharge prescriptions or medication management in the emergency department Prescription for cefpodoxime given. Historians other than the Patient: Daughter/Son: Patient's daughter. Counseling: I had a detailed discussion with the patient and/or guardian regarding the historical points, exam findings, and any diagnostic results supporting the discharge/admit diagnosis, lab results, the need for outpatient follow up, to return to the emergency department if symptoms worsen or persist or if there are any questions or concerns that arise at home. Special discussion: I discussed with the patient/guardian in detail that at this point there is no indication for admission to the hospital. It is understood, however, that if the symptoms persist or worsen the patient needs to return immediately for re-evaluation. ED course: Discussed urinalysis results with patient and his daughter. Patient is alert, in no apparent distress, nontoxic-appearing, speaking full sentences, tolerating p.o. Patient to follow-up with primary care physician in 2 to 3 days. Patient and his daughter understand and agree with plan. All questions were answered. Return precautions discussed include worsening symptoms, or any other concerns.. 10/07 07:27 Order name: Urinalysis w/ reflexes; Complete Time: 08:34 ms3 10/07 08:25 Order name: Urine Culture EDMS Administered Medications: No medications were administered Disposition Summary: 10/07/24 09:23 Discharge Ordered Notes: Location: Home ms3 Condition: Stable ms3 Diagnosis - UTI/ Urinary tract infection, site not specified ms3 Followup: ms3 - With: Private Physician - When: 2 - 3 days - Reason: Recheck today's complaints Discharge Instructions: - Discharge Summary Sheet ms3 Forms: - Medication Reconciliation Form ms3 - Antibiotic Education ms3 - Prescription Opioid Use ms3 - Patient Portal Instructions ms3 - Leadership Thank You Letter ms3 Prescriptions: - cefpodoxime 200 mg Oral tablet - take 1 tablet ORAL route every 12 hours with food; 20 tablet; Refills: 0, ms3 Product Selection Permitted Signatures: Dispatcher [employer] EDRoger Ernst, DO ms3 Helen Koehler, RN RN ld1
--- NOTE | 2024-10-07 09:23 | ER ---
Nurse's Notes [facility] Name: Ochoa Bansal Age: 79 yrs Sex: Male : 1945 Arrival Date: 10/07/2024 Time: 07:13 Bed 7 Private MD: Diagnosis: UTI/ Urinary tract infection, site not specified Presentation: 10/07 07:32 Chief complaint: Patient states: frequent urination X 3 days. Coronavirus screen: At ld1 this time, the client does not indicate any symptoms associated with coronavirus-19. Ebola Screen: No symptoms or risks identified at this time. Initial Sepsis Screen: Does the patient meet any 2 criteria? No. Patient's initial sepsis screen is negative. Does the patient have a suspected source of infection? No. Patient's initial sepsis screen is negative. Risk Assessment: Do you want to hurt yourself or someone else? Patient reports no desire to harm self or others. Onset of symptoms was October 07, 2024. 07:32 Method Of Arrival: Ambulatory ld1 07:32 Acuity: JORGE 3 ld1 Triage Assessment: 07:32 General: Appears in no apparent distress. comfortable, Behavior is calm, cooperative, ld1 appropriate for age. Pain: Denies pain. EENT: No signs and/or symptoms were reported regarding the EENT system. Neuro: Level of Consciousness is awake, alert, obeys commands, Oriented to person, place, time, situation. Cardiovascular: Capillary refill < 3 seconds Patient's skin is warm and dry. Respiratory: Airway is patent Respiratory effort is even, unlabored. GI: Abdomen is flat, non-distended. : Reports urinary frequency, since 3 dys. Derm: No signs and/or symptoms reported regarding the dermatologic system. Musculoskeletal: No signs and/or symptoms reported regarding the musculoskeletal system. Historical: - Allergies: 07:35 No Known Allergies; ld1 - PMHx: 07:22 Hypertension; Prostate Cancer; ld1 - Immunization history:: Adult Immunizations up to date. - Infectious Disease History:: Denies. - Social history:: Smoking status: Patient denies any tobacco usage or history of. Screenin:34 [facility] ED Fall Risk Assessment (Adult) History of falling in the last 3 months, ld1 including since admission No falls in past 3 months (0 pts) Confusion or Disorientation No (0 pts) Intoxicated or Sedated No (0 pts) Impaired Gait No (0 pts) Mobility Assist Device Used No (0 pt) Altered Elimination No (0 pt) Score/Fall Risk Level 0 - 2 = Low Risk Oriented to surroundings, Hourly rounding (assess needs \T\ fall precautionary measures) done. Abuse screen: Denies threats or abuse. Denies injuries from another. Nutritional screening: No deficits noted. Tuberculosis screening: No symptoms or risk factors identified. Assessment: 07:34 Reassessment: See triage assessment. ld1 Vital Signs: 07:32 BP 163 / 89; Pulse 64; Resp 18; Temp 97.8(O); Pulse Ox 99% on R/A; Weight 90.26 kg; ld1 Height 6 ft. 0 in. ; Pain 0/10; 07:32 Body Mass Index 26.99 (90.26 kg, 182.88 cm) ld1 07:32 Pain Scale: Adult ld1 ED Course: 07:15 Patient arrived in ED. mr 07:22 Helen Koehler, RN is Primary Nurse. ld1 07:26 Roger Koehler DO is Attending Physician. ms3 07:32 Arm band placed on right wrist. ld1 07:33 Triage completed. ld1 07:34 Patient has correct armband on for positive identification. Placed in gown. Bed in low ld1 position. Call light in reach. Side rails up X2. nurse monitoring on. Pulse ox on. NIBP on. Door closed. Noise minimized. Warm blanket given. 07:34 No provider procedures requiring assistance completed. ld1 09:33 Patient did not have IV access during this emergency room visit. ld1 Administered Medications: No medications were administered Medication: 07:34 VIS not applicable for this client. ld1 Output: 09:33 Urine: 200ml (Voided); Total: 200ml. ld1 Outcome: 09:23 Discharge ordered by . ms3 09:32 Discharged to home ambulatory, with family, ld1 09:32 Condition: stable 09:32 Discharge instructions given to patient, family, Instructed on discharge instructions, follow up and referral plans. medication usage, Demonstrated understanding of instructions, follow-up care, medications, Prescriptions given X 1, 09:33 Patient left the ED. ld1 Signatures: Oliva Matias, Reg Reg mr Roger Koehler DO DO ms3 Helen Koehler, RN RN ld1
[2024-10-07 09:47] VITALS: BP 163/89; TEMP 97.8; O2SAT 99
== END 2024-10-07 09:33 | disposition home or self-care (01) ==
LOC: ER 07:13
DX: N39.0 Urinary tract infection, site not specified (principal); Z85.46 Personal history of malignant neoplasm of prostate; I10 Essential (primary) hypertension
CPT/HCPCS: 81001; 87077; 87086; 87088; 87186; 99284